=== PATIENT | female | born 1960 | race Caucasian/White ===

== ENCOUNTER → 2021-04-24 | Outpatient (CLI) | payer OTHER | LOC: CAT 10:45 | PROVIDERS: ATTEND Internal Medicine Cardiovascular Disease | DX: Z13.6 Encounter for screening for cardiovascular disorders (principal); E78.00 Pure hypercholesterolemia, unspecified; I25.10 Atherosclerotic heart disease of native coronary artery without angina pectoris ==

== ENCOUNTER → 2021-04-24 | Outpatient (CLI) | payer OTHER | LOC: SJCVCIMAG 03-29 07:43 | PROVIDERS: ATTEND Internal Medicine Cardiovascular Disease | DX: I08.1 Rheumatic disorders of both mitral and tricuspid valves (principal); I10 Essential (primary) hypertension; Z95.0 Presence of cardiac pacemaker; Z79.899 Other long term (current) drug therapy ==

== ENCOUNTER → 2021-11-13 | Outpatient (CLI) | payer OTHER ==
[~2021-11-13] VITALS: Ht 167.6 cm; Wt 131.5 kg
[~2021-11-13] MED LIST: ASA81BEC PO; LIPITOR 20 MG T20 M1 PO; TOPROL XL100 MG PO
[2021-11-13 09:24] VITALS: BP 124/89
[2021-11-13 09:26] LABS: ABSOLUTE NEUTROPHILS 3.6 thou/uL (1.4-8.2); BASOPHILS 0.9 % (0.0-2.0); HEMATOCRIT 41.5 % (37.0-47.0); HEMOGLOBIN 13.3 gm/dL (12.0-15.0); LYMPHOCYTES 25.2 % (24.0-44.0); MCH 30.2 pg (26.0-34.0); MCHC 32.1 g/dL (28.0-37.0); MCV 94.1 fL (80.0-100.0); MONOCYTES 9.9 % (1.0-8.0); PLATELET COUNT 214 thou/uL (150-400); RBC 4.41 mil/uL (4.20-5.00); RDW 14.9 % (10.5-14.5); WBC 5.9 thou/uL (4.0-11.0)
[2021-11-13 09:29] LABS: CREATININE 0.9 mg/dL (0.6-1.0); POTASSIUM 3.9 mmol/L (3.5-5.1)
[2021-11-13 09:31] LABS: INR 0.99; PROTIME 10.8 Seconds (10.5-12.1)
[2021-11-13 09:35] LABS: TOTAL BILIRUBIN 0.5 mg/dL (0.2-1.0); TOTAL PROTEIN 7.2 g/dL (6.4-8.2)
--- NOTE | 2021-11-20 08:47 | P ---
[facility] [place] [address] PROCEDURE REPORT Name: SOURAV BENOIT Room #: REG DEVIN LoveKimberleySterlingKimberley#: [id number] Admission: 11/13/21 Attend Phys: Madan Condon MD Discharge: Date of : 60 Report #: [id number] THIS REPORT FOR: cc: FAM - No family physician/PCP FAM - No family physician/PCP Madan Condon MD ~ DATE OF SERVICE: 11/13/2021 PROCEDURE: Pacemaker generator exchange. PREOPERATIVE DIAGNOSIS: Pacemaker elective replacement indicator. POSTOPERATIVE DIAGNOSIS: Pacemaker elective replacement indicator. ANESTHESIA: The patient underwent MAC anesthesia with no anesthesia related complications. DESCRIPTION OF PROCEDURE: The patient underwent informed consent. She was brought to the EP laboratory in a fasting and non-sedated state, prepped and draped in a standard fashion and received IV antibiotics. Next, I injected lidocaine at the incision site. Incision was made and the cardiac pocket was entered. Old device was disconnected. Leads were tested and found to be functioning normal. New device was connected, placed in the pocket, pocket irrigated with vancomycin. Pocket closed in 2 layers. Surgical glue was placed to outer skin layer. There were no procedure related complications and no significant bleeding. The explanted device was a Medtronic model number RVDR01, serial number [id number]. The newly implanted device was Medtronic model number W3DR01, serial number [id number]. Atrial lead was 5086, 45 cm, serial number [id number]. RV lead was a 5086, 52 cm, serial number [id number]. Atrial lead demonstrated P waves of 4.9 millivolts, pacing impedance 408 ohms, pacing threshold 0.8 volts at 0.5 milliseconds. Ventricular lead demonstrated R waves of 8.2 millivolts, pacing impedance 488 ohms, pacing threshold 0.5 volts at 0.5 milliseconds. The device was programmed DDDR 60-130 mode. CONCLUSION: Successful pacemaker generator exchange. <ELECTRONICALLY SIGNED> By: Madan Condon MD 11/20/21 [id number] Madan Condon MD /nt
== END | disposition home or self-care (01) ==
LOC: CATH 08:08
PROVIDERS: ATTEND Internal Medicine Cardiovascular Disease
DX: Z45.010 Encounter for checking and testing of cardiac pacemaker pulse generator [battery] (principal); I49.5 Sick sinus syndrome; I10 Essential (primary) hypertension; E78.00 Pure hypercholesterolemia, unspecified; E78.5 Hyperlipidemia, unspecified; K21.9 Gastro-esophageal reflux disease without esophagitis; Z98.890 Other specified postprocedural states; Z79.899 Other long term (current) drug therapy; Z20.822 Contact with and (suspected) exposure to COVID-19; Z79.82 Long term (current) use of aspirin
CPT/HCPCS: 62110; 62900; 70005